=== PATIENT | male | born 1970 | race Caucasian/White ===

== ENCOUNTER 2017-01-12 06:57 | Outpatient (CLI) | payer BC, OTHER ==
[~2017-01-12 06:57] MED LIST: LOSARTIN PO
[2017-01-12 07:43] LABS: BASOPHILS # (AUTO) 0.1 K/uL (0.0-0.2); BASOPHILS % (AUTO) 1.2 % (0.0-2.0); EOSINOPHILS # (AUTO) 0.2 K/uL (0.0-0.7); EOSINOPHILS % (AUTO) 4.9 % (0.0-7.0); HEMATOCRIT 45.5 % (40.0-50.0); HEMOGLOBIN 15.1 g/dL (14.0-18.0); LYMPHOCYTES # (AUTO) 1.3 K/uL (0.8-4.8); LYMPHOCYTES % (AUTO) 27.4 % (20.5-51.5); MEAN CORPUSCULAR HEMOGLOBIN 28.4 uug (27.0-31.0); MEAN CORPUSCULAR HGB CONC 33 g/dL (32.0-37.0); MEAN CORPUSCULAR VOLUME 85.9 fL (82.0-92.0); MONOCYTES # (AUTO) 0.3 K/uL (0.1-1.30); MONOCYTES % (AUTO) 5.5 % (0.0-11.0); NEUTROPHILS # (AUTO) 2.7 K/uL (1.8-8.9); PLATELET COUNT (AUTO) 234 K/uL (150-450); RED CELL DISTRIBUTION WIDTH 12.9 % (11.5-14.5); WHITE BLOOD COUNT (AUTO) 4.6 K/uL (4.0-11.2)
[2017-01-12 08:02] LABS: ALBUMIN 4.2 g/dL (3.4-5.0); BILIRUBIN,TOTAL 0.4 mg/dL (0.2-1.0); CALCIUM 9.1 mg/dL (8.5-10.1); TOTAL PROTEIN, SERUM 7.5 g/dL (6.4-8.2)
[2017-01-12 08:11] LABS: THYROID STIMULATING HORMONE 1.831 mIU/mL (0.358-3.740)
[2017-01-13 13:32] LABS: *MICROALBUMIN, UR <3.0 ug/mL (Not Estab.); CREATININE, URINE 47.9 mg/dL (Not Estab.); MICROALBUMIN/CREAT RATIO, UR <6.3 mg/g creat (0.0-30.0)
== END 2017-01-12 23:59 | disposition home or self-care (01) ==
LOC: LAB 06:57
PROVIDERS: ATTEND Family Medicine
DX: E11.9 Type 2 diabetes mellitus without complications (principal); E55.9 Vitamin D deficiency, unspecified; I10 Essential (primary) hypertension
CPT/HCPCS: 82043; 82306; 82570; 83735; 84443; 84480; 85025

== ENCOUNTER 2017-02-15 11:39 | Day surgery (SDC) | payer BC, OTHER ==
[2017-02-15 12:01] LABS: BASOPHILS # (AUTO) 0.1 K/uL (0.0-8.0); EOSINOPHILS # (AUTO) 0.1 K/uL (0.0-0.7); HEMATOCRIT 46.9 % (40-50); HEMOGLOBIN 15.9 G/DL (14.0-18.0); LYMPHOCYTES # (AUTO) 1.4 K/UL (0.8-4.8); LYMPHOCYTES % (AUTO) 24.9 % (20.5-51.5); MEAN CORPUSCULAR HGB CONC 34 g/dL (32.0-37.0); MEAN CORPUSCULAR VOLUME 85.5 FL (82.0-92.0); MONOCYTES # (AUTO) 0.3 K/UL (0.1-1.30); MONOCYTES % (AUTO) 5.8 % (0.0-11.0); NEUTROPHILS # (AUTO) 3.8 K/UL (1.8-8.9); NEUTROPHILS % (AUTO) 66.3 % (38.5-71.5); PLATELET COUNT (AUTO) 237 K/UL (150-450); RED BLOOD CELL COUNT(AUTO) 5.49 MIL/UL (4.7-6.1); RED CELL DISTRIBUTION WIDTH 12.6 % (11.5-14.5); WHITE BLOOD COUNT (AUTO) 5.7 K/UL (4.0-11.2)
[2017-02-15 12:03] LABS: *BILIRUBIN,URIN NEGATIVE (NEGATIVE); *BLOOD, URINE Trace-lysed (NEGATIVE); *CLARITY,URINE CLEAR (CLEAR); *COLOR,URINE YELLOW (YELLOW); *KETONES,URINE NEGATIVE (NEGATIVE); *PROTEIN,URINE NEGATIVE (NEGATIVE); *UROBILINOGEN,URINE 0.2 E.U./dl (NORMAL); LEUKOCYTE ESTERASE ,URINE NEGATIVE (NEGATIVE); NITRITE, URINE NEGATIVE (NEGATIVE); UGLUCOSE NEGATIVE (NEGATIVE)
[2017-02-15 12:09] LABS: CALCIUM 9.1 mg/dL (8.5-10.1); POTASSIUM 3.6 mmol/L (3.5-5.1)
[2017-02-15 12:14] LABS: ALBUMIN 4.4 g/dL (3.4-5.0); BILIRUBIN,TOTAL 0.6 mg/dL (0.2-1.0); TOTAL PROTEIN, SERUM 7.7 g/dL (6.4-8.2)
[2017-02-15 12:17] LABS: BACTERIA,URINE NONE SEEN /HPF (NONE SEEN); RBC,URINE 0-3 /HPF (0-3); WBC,URINE NONE SEEN /HPF (0-3)
[2017-02-15 12:18] LABS: SQUAMOUS EPITHELIAL CELL,UR FEW /HPF (NONE SEEN)
[2017-02-15] MEDS ORDERED: LIDOCAINE HCL 1% 20 ML VIAL MC ONE (12:47)
[2017-02-15] MEDS ORDERED: PROPOFOL 200 MG/20 ML BOTTLE IV ONE (12:47)
[2017-02-15] MEDS ORDERED: IV LACTATED RINGERS SOLUTION 1,000 ML BAG IV ONE (12:48)
== END 2017-02-15 14:45 | disposition home or self-care (01) ==
LOC: DS 11:39
PROVIDERS: ATTEND Internal Medicine Gastroenterology
DX: D64.9 Anemia, unspecified (principal); K20.9 Esophagitis, unspecified; K64.8 Other hemorrhoids; I10 Essential (primary) hypertension; E11.9 Type 2 diabetes mellitus without complications; E78.00 Pure hypercholesterolemia, unspecified
CPT/HCPCS: 36415; 85025; 85730; A4217; A4663; J3490; J7030; J7120

== ENCOUNTER 2017-04-05 09:24 | Emergency (ER) | payer BC, OTHER ==
[~2017-04-05] VITALS: Ht 172.7 cm; Wt 86.2 kg
[2017-04-05] MEDS ORDERED: METF500T4 PO (09:43)
[2017-04-05] MEDS ORDERED: AMLO5TAB2 PO (09:43)
[2017-04-05] MEDS ORDERED: LOSA1TAB35 PO (09:43)
[2017-04-05] MEDS ORDERED: ATOR10TA PO (09:43)
[2017-04-05] MEDS ORDERED: diphenhydrAMINE 50 MG CAPSULE PO ONE (10:00)
[2017-04-05] MEDS ORDERED: diphenhydrAMINE 50 MG CAPSULE ONE (10:11)
[2017-04-05 10:16] LABS: BASOPHILS % (AUTO) 0.7 % (0.0-2.0); EOSINOPHILS # (AUTO) 0.1 K/uL (0.0-0.7); EOSINOPHILS % (AUTO) 2.6 % (0.0-7.0); HEMOGLOBIN 15.1 G/DL (14.0-18.0); LYMPHOCYTES # (AUTO) 1.5 K/UL (0.8-4.8); LYMPHOCYTES % (AUTO) 30.5 % (20.5-51.5); MEAN CORPUSCULAR HEMOGLOBIN 28.2 UUG (27.0-31.0); MEAN CORPUSCULAR HGB CONC 33 g/dL (32.0-37.0); MEAN CORPUSCULAR VOLUME 85.8 FL (82.0-92.0); MONOCYTES # (AUTO) 0.3 K/UL (0.1-1.30); MONOCYTES % (AUTO) 6.6 % (0.0-11.0); NEUTROPHILS # (AUTO) 3.1 K/UL (1.8-8.9); NEUTROPHILS % (AUTO) 59.6 % (38.5-71.5); PLATELET COUNT (AUTO) 216 K/UL (150-450); RED BLOOD CELL COUNT(AUTO) 5.36 MIL/UL (4.7-6.1)
[2017-04-05 10:22] LABS: CREATININE 0.9 mg/dL (0.6-1.3); POTASSIUM 3.7 mmol/L (3.5-5.1)
[2017-04-05 10:29] LABS: BILIRUBIN,DIRECT 0.1 mg/dL (0.0-0.2); BILIRUBIN,TOTAL 0.5 mg/dL (0.2-1.0); TOTAL PROTEIN, SERUM 7.1 g/dL (6.4-8.2)
[2017-04-05] MEDS ORDERED: GABAPENTIN 100 MG CAPSULE PO ONE (10:45)
--- NOTE | 2017-04-05 10:52 | NUR ---
MSE COMPLETED, MEDS ADMINIOSTERED. PT STATED SYMPTOMS RESOLVING. PT WAS D/C'D HOME WITH ACI/RX X2. PT AMBULATED W/O DIFF/TOOK ALL BELONGINGS.
[2017-04-05 10:54] VITALS: BP 145/89
[2017-04-05] MEDS ORDERED: GABAPENTIN 100 MG CAPSULE ONE (10:56)
== END 2017-04-05 10:54 | disposition home or self-care (01) ==
LOC: ER 09:26
DX: M79.2 Neuralgia and neuritis, unspecified (principal); R21 Rash and other nonspecific skin eruption; I10 Essential (primary) hypertension; E78.00 Pure hypercholesterolemia, unspecified; E11.9 Type 2 diabetes mellitus without complications; K21.9 Gastro-esophageal reflux disease without esophagitis; Z88.6 Allergy status to analgesic agent
CPT/HCPCS: 36415; 70030-TC; 85025; 85730; A4663; Q0163

== ENCOUNTER → 2017-04-21 | Outpatient (CLI) | payer BC, OTHER ==
[~2017-04-21] MED LIST changes: +AMLO5TAB2 PO; +ATOR10TA PO; +LOSA1TAB35 PO; +METF500T4 PO
[2017-04-21 08:44] LABS: BASOPHILS % (AUTO) 0.6 % (0.0-2.0); EOSINOPHILS # (AUTO) 0.1 K/uL (0.0-0.7); EOSINOPHILS % (AUTO) 2.3 % (0.0-7.0); HEMATOCRIT 43.2 % (40-50); HEMOGLOBIN 14.1 G/DL (14.0-18.0); LYMPHOCYTES # (AUTO) 1.3 K/UL (0.8-4.8); LYMPHOCYTES % (AUTO) 28.6 % (20.5-51.5); MEAN CORPUSCULAR HGB CONC 33 g/dL (32.0-37.0); MEAN CORPUSCULAR VOLUME 85.5 FL (82.0-92.0); MONOCYTES # (AUTO) 0.3 K/UL (0.1-1.30); MONOCYTES % (AUTO) 6.1 % (0.0-11.0); NEUTROPHILS # (AUTO) 2.7 K/UL (1.8-8.9); NEUTROPHILS % (AUTO) 62.4 % (38.5-71.5); PLATELET COUNT (AUTO) 171 K/UL (150-450); RED BLOOD CELL COUNT(AUTO) 5.05 MIL/UL (4.7-6.1); WHITE BLOOD COUNT (AUTO) 4.4 K/UL (4.0-11.2)
[2017-04-21 09:02] LABS: BILIRUBIN,TOTAL 0.5 mg/dL (0.2-1.0); POTASSIUM 4.1 mmol/L (3.5-5.1); TOTAL PROTEIN, SERUM 7.2 g/dL (6.4-8.2)
[2017-04-21 09:11] LABS: THYROID STIMULATING HORMONE 1.347 mIU/mL (0.358-3.740)
[2017-04-22 08:08] LABS: *CELIAC IMMUNOGLOBULIN A 192 mg/dL (90-386)
[2017-04-22 12:09] LABS: *MICROALBUMIN, UR <3.0 ug/mL (Not Estab.); CREATININE, URINE 55.9 mg/dL (Not Estab.); IMMUNOGLOBULIN E, TOTAL 195 IU/mL (0-100); MICROALBUMIN/CREAT RATIO, UR <5.4 mg/g creat (0.0-30.0)
[2017-04-24 12:07] LABS: *CELIAC T-TRANSGLUTAMINASE IGA <2 U/mL (0-3); *CELIAC T-TRANSGLUTAMINASE IGG <2 U/mL (0-5)
[2017-04-25 11:07] LABS: *CELIAC DEAMIDATED GLIADIN IGA 5 units (0-19); *CELIAC DEAMIDATED GLIADIN IGG 2 units (0-19)
== END | disposition home or self-care (01) ==
LOC: LAB 07:11
PROVIDERS: ATTEND Family Medicine
DX: E11.9 Type 2 diabetes mellitus without complications (principal); L28.2 Other prurigo
CPT/HCPCS: 36415; 82043; 82570; 82785; 84443; 84480; 85025

== ENCOUNTER → 2017-08-22 | Outpatient (CLI) | payer BC, OTHER ==
[2017-08-22 07:46] LABS: *BILIRUBIN,URIN NEGATIVE (NEGATIVE); *BLOOD, URINE NEGATIVE (NEGATIVE); *CLARITY,URINE CLEAR (CLEAR); *COLOR,URINE YELLOW (YELLOW); *KETONES,URINE NEGATIVE (NEGATIVE); *PROTEIN,URINE NEGATIVE (NEGATIVE); *UROBILINOGEN,URINE 0.2 E.U./dl (NORMAL); LEUKOCYTE ESTERASE ,URINE NEGATIVE (NEGATIVE); NITRITE, URINE NEGATIVE (NEGATIVE); PH,URINE 7.5 (5.0-8.0); UGLUCOSE NEGATIVE (NEGATIVE)
[2017-08-22 07:58] LABS: BASOPHILS % (AUTO) 0.7 % (0.0-2.0); EOSINOPHILS # (AUTO) 0.1 K/uL (0.0-0.7); EOSINOPHILS % (AUTO) 2.2 % (0.0-7.0); HEMATOCRIT 45.3 % (40-50); LYMPHOCYTES # (AUTO) 1.2 K/UL (0.8-4.8); MEAN CORPUSCULAR HGB CONC 33 g/dL (32.0-37.0); MEAN CORPUSCULAR VOLUME 84.7 FL (82.0-92.0); MONOCYTES # (AUTO) 0.3 K/UL (0.1-1.30); MONOCYTES % (AUTO) 6.6 % (0.0-11.0); NEUTROPHILS % (AUTO) 63.5 % (38.5-71.5); PLATELET COUNT (AUTO) 230 K/UL (150-450); RED BLOOD CELL COUNT(AUTO) 5.35 MIL/UL (4.7-6.1); WHITE BLOOD COUNT (AUTO) 4.6 K/UL (4.0-11.2)
[2017-08-22 08:06] LABS: BACTERIA,URINE NONE SEEN /HPF (NONE SEEN); RBC,URINE 0-3 /HPF (0-3); WBC,URINE 0-3 /HPF (0-3)
[2017-08-22 08:07] LABS: SQUAMOUS EPITHELIAL CELL,UR NONE SEEN /HPF (NONE SEEN)
[2017-08-22 08:38] LABS: BILIRUBIN,TOTAL 0.6 mg/dL (0.2-1.0); CREATININE 0.8 mg/dL (0.6-1.3); POTASSIUM 3.7 mmol/L (3.5-5.1); TOTAL PROTEIN, SERUM 7.5 g/dL (6.4-8.2)
[2017-08-22 09:31] LABS: THYROID STIMULATING HORMONE 2.708 mIU/mL (0.358-3.740)
[2017-08-23 10:08] LABS: HEPATITIS A AB, TOTAL Negative (Negative); HEPATITIS B SURFACE AB Reactive (.)
== END | disposition home or self-care (01) ==
LOC: LAB 06:56
PROVIDERS: ATTEND Family Medicine
DX: Z11.59 Encounter for screening for other viral diseases (principal); E11.9 Type 2 diabetes mellitus without complications
CPT/HCPCS: 82043; 82570; 84443; 85025; 86706; 86708

== ENCOUNTER 2017-10-05 09:36 | Outpatient (CLI) | payer BC, OTHER ==
[~2017-10-05 09:36] MED LIST changes: -LOSA1TAB35 PO; +LOSA1TAB42 PO
== END 2017-10-05 23:59 | disposition home or self-care (01) ==
LOC: LAB 09:36
PROVIDERS: ATTEND Family Medicine
DX: Z11.59 Encounter for screening for other viral diseases (principal)
CPT/HCPCS: 36415; 86708

== ENCOUNTER 2018-01-27 09:03 | Outpatient (CLI) | payer BC, OTHER ==
[~2018-01-27 09:03] MED LIST changes: -METF500T4 PO; +METF500T6 PO
== END 2018-01-27 23:59 | disposition home or self-care (01) ==
LOC: LAB 09:03
PROVIDERS: ATTEND Family Medicine
DX: E55.9 Vitamin D deficiency, unspecified (principal)
CPT/HCPCS: 36415; 82306

== ENCOUNTER 2020-10-07 16:39 | Outpatient (CLI) | payer BC, OTHER ==
[~2020-10-07 16:39] MED LIST changes: +AMLO-212 PO; -AMLO5TAB2 PO; +METF-440 PO; -METF500T6 PO
[2020-10-07 17:26] LABS: BASOPHILS # (AUTO) 0.1 K/uL (0.0-8.0); BASOPHILS % (AUTO) 2.2 % (0.0-2.0); EOSINOPHILS # (AUTO) 0.2 K/uL (0.0-0.7); EOSINOPHILS % (AUTO) 3.7 % (0.0-7.0); HEMATOCRIT 43.9 % (36.7-47.1); HEMOGLOBIN 14.5 g/dL (12.5-16.3); LYMPHOCYTES # (AUTO) 1.7 K/uL (20.0-40.0); LYMPHOCYTES % (AUTO) 26.2 % (20.5-51.5); MEAN CORPUSCULAR HEMOGLOBIN 28.9 uug (23.8-33.4); MEAN CORPUSCULAR HGB CONC 33 g/dL (32.5-36.3); MEAN CORPUSCULAR VOLUME 87.6 fL (73.0-96.2); MONOCYTES # (AUTO) 0.5 K/uL (2.0-10.0); MONOCYTES % (AUTO) 7.4 % (0.0-11.0); NEUTROPHILS # (AUTO) 3.8 K/uL (1.8-8.9); NEUTROPHILS % (AUTO) 60.5 % (38.5-71.5); PLATELET COUNT (AUTO) 234 K/uL (152-348); RED BLOOD CELL COUNT(AUTO) 5.02 MIL/uL (4.06-5.63); WHITE BLOOD COUNT (AUTO) 6.3 K/uL (3.6-10.2)
== END 2020-10-07 23:59 | disposition home or self-care (01) ==
LOC: LAB 16:39
PROVIDERS: ATTEND Family Medicine
DX: M79.605 Pain in left leg (principal)
CPT/HCPCS: 36415; 85025

== ENCOUNTER → 2020-10-24 | Outpatient (CLI) | payer BC, OTHER ==
[2020-10-24 10:09] LABS: *BILIRUBIN,URIN NEGATIVE (NEGATIVE); *BLOOD, URINE NEGATIVE (NEGATIVE); *COLOR,URINE YELLOW (YELLOW); *KETONES,URINE NEGATIVE (NEGATIVE); *UROBILINOGEN,URINE 0.2 E.U./dl (NORMAL); LEUKOCYTE ESTERASE ,URINE NEGATIVE (NEGATIVE); NITRITE, URINE NEGATIVE (NEGATIVE); PH,URINE 7.5 (5.0-8.0); UGLUCOSE NEGATIVE (NEGATIVE)
[2020-10-24 10:13] LABS: *CLARITY,URINE CLEAR (CLEAR)
[2020-10-24 10:31] LABS: THYROID STIMULATING HORMONE 1.179 mIU/mL (0.358-3.740)
[2020-10-24 10:57] LABS: BILIRUBIN,TOTAL 0.7 mg/dL (0.2-1.0); CREATININE 0.8 mg/dL (0.6-1.3); TOTAL PROTEIN, SERUM 7.4 g/dL (6.4-8.2)
== END | disposition home or self-care (01) ==
LOC: LAB 09:34
PROVIDERS: ATTEND Family Medicine
DX: I10 Essential (primary) hypertension (principal); E55.9 Vitamin D deficiency, unspecified; M79.605 Pain in left leg; Z79.899 Other long term (current) drug therapy
CPT/HCPCS: 36415; 82306; 82746; 84443; 84550

== ENCOUNTER → 2021-04-03 | Outpatient (CLI) | payer BC, OTHER ==
[2021-04-03 09:11] LABS: *BILIRUBIN,URIN NEGATIVE (NEGATIVE); *CLARITY,URINE CLEAR (CLEAR); *COLOR,URINE YELLOW (YELLOW); *KETONES,URINE NEGATIVE (NEGATIVE); *UROBILINOGEN,URINE 0.2 E.U./dl (NORMAL); LEUKOCYTE ESTERASE ,URINE NEGATIVE (NEGATIVE); NITRITE, URINE NEGATIVE (NEGATIVE); PH,URINE 7.5 (5.0-8.0); UGLUCOSE NEGATIVE (NEGATIVE)
[2021-04-03 09:39] LABS: *BLOOD, URINE TRACE (NEGATIVE)
[2021-04-03 09:42] LABS: HEMATOCRIT 43.4 % (36.7-47.1); PLATELET COUNT (AUTO) 219 K/uL (152-348)
[2021-04-03 09:52] LABS: BILIRUBIN,TOTAL 0.6 mg/dL (0.2-1.0); CREATININE 0.8 mg/dL (0.6-1.3); POTASSIUM 3.7 mmol/L (3.5-5.1); TOTAL PROTEIN, SERUM 7.1 g/dL (6.4-8.2)
[2021-04-03 10:02] LABS: THYROID STIMULATING HORMONE 2.322 mIU/mL (0.358-3.740)
[2021-04-03 17:32] LABS: RBC,URINE 0-3 /HPF (0-3); SQUAMOUS EPITHELIAL CELL,UR FEW /HPF (NONE SEEN); WBC,URINE NONE SEEN /HPF (0-3)
[2021-04-04 15:37] LABS: *MICROALBUMIN, UR 4.7; CREATININE, URINE 34.5
== END | disposition home or self-care (01) ==
LOC: LAB 08:47
PROVIDERS: ATTEND Family Medicine
DX: I10 Essential (primary) hypertension (principal); E11.9 Type 2 diabetes mellitus without complications; E55.9 Vitamin D deficiency, unspecified; K21.00 Gastro-esophageal reflux disease with esophagitis, without bleeding
CPT/HCPCS: 36415; 82043; 82306; 82570; 84443; 85025

== ENCOUNTER 2021-12-24 10:47 | Outpatient (CLI) | payer BC, OTHER | END 2021-12-24 23:59 | disposition home or self-care (01) | LOC: CT 10:47 | PROVIDERS: ATTEND Family Medicine | DX: R91.1 Solitary pulmonary nodule (principal); E27.8 Other specified disorders of adrenal gland; M47.814 Spondylosis without myelopathy or radiculopathy, thoracic region; M19.011 Primary osteoarthritis, right shoulder; M19.012 Primary osteoarthritis, left shoulder; Z87.891 Personal history of nicotine dependence | CPT/HCPCS: 71250 ==

== ENCOUNTER 2022-07-02 08:08 | Outpatient (CLI) | payer BC, OTHER | END 2022-07-02 10:53 | disposition home or self-care (01) | LOC: LAB 08:08 | PROVIDERS: ATTEND Internal Medicine Gastroenterology | DX: Z01.812 Encounter for preprocedural laboratory examination (principal); Z20.822 Contact with and (suspected) exposure to COVID-19 ==

== ENCOUNTER 2022-07-02 08:34 | Outpatient (CLI) | payer BC, OTHER ==
[2022-07-02 09:01] LABS: HEMATOCRIT 43.8 % (36.7-47.1); MEAN CORPUSCULAR HEMOGLOBIN 29.1 uug (23.8-33.4); MEAN CORPUSCULAR VOLUME 86.5 fL (73.0-96.2); PLATELET COUNT (AUTO) 262 K/uL (152-348)
[2022-07-02 09:08] LABS: BILIRUBIN,TOTAL 0.6 mg/dL (0.2-1.0); CREATININE 0.9 mg/dL (0.6-1.3); POTASSIUM 3.8 mmol/L (3.5-5.1); TOTAL PROTEIN, SERUM 7.6 g/dL (6.4-8.2)
[2022-07-02 09:08] LABS: *BILIRUBIN,URIN NEGATIVE (NEGATIVE); *BLOOD, URINE TRACE (NEGATIVE); *CLARITY,URINE CLEAR (CLEAR); *COLOR,URINE YELLOW (YELLOW); *KETONES,URINE NEGATIVE (NEGATIVE); *UROBILINOGEN,URINE 0.2 E.U./dl (NORMAL); LEUKOCYTE ESTERASE ,URINE NEGATIVE (NEGATIVE); NITRITE, URINE NEGATIVE (NEGATIVE); UGLUCOSE NEGATIVE (NEGATIVE)
[2022-07-02 09:32] LABS: BACTERIA,URINE NONE SEEN /HPF (NONE SEEN); RBC,URINE 0-3 /HPF (0-3); SQUAMOUS EPITHELIAL CELL,UR NONE SEEN /HPF (NONE SEEN); WBC,URINE NONE SEEN /HPF (0-3)
== END 2022-07-02 23:59 | disposition home or self-care (01) ==
LOC: LAB 08:34
PROVIDERS: ATTEND Internal Medicine Gastroenterology
DX: Z01.812 Encounter for preprocedural laboratory examination (principal)
CPT/HCPCS: 36415; 85025; 85610; 85730

== ENCOUNTER → 2022-07-05 | Day surgery (SDC) | payer BC, OTHER ==
[~2022-07-05] MED LIST changes: +LIDOCAINE-MPF 2% 5 ML VIAL IJ ONE; +PROPOFOL 200 MG/20 ML BOTTLE IV ONE
== END | disposition home or self-care (01) ==
LOC: DS 05:34
PROVIDERS: ATTEND Internal Medicine Gastroenterology
DX: Z12.11 Encounter for screening for malignant neoplasm of colon (principal); R10.13 Epigastric pain; K64.8 Other hemorrhoids; K63.89 Other specified diseases of intestine; K31.89 Other diseases of stomach and duodenum; K21.00 Gastro-esophageal reflux disease with esophagitis, without bleeding; K29.50 Unspecified chronic gastritis without bleeding; I10 Essential (primary) hypertension; E11.9 Type 2 diabetes mellitus without complications; Z79.82 Long term (current) use of aspirin; Z79.84 Long term (current) use of oral hypoglycemic drugs; Z98.890 Other specified postprocedural states
CPT/HCPCS: A4663; J3490; J7040

== ENCOUNTER 2022-12-16 11:49 | Outpatient (CLI) | payer BC, OTHER ==
[~2022-12-16 11:49] MED LIST changes: -LIDOCAINE-MPF 2% 5 ML VIAL IJ ONE; -PROPOFOL 200 MG/20 ML BOTTLE IV ONE
== END 2022-12-16 23:59 | disposition home or self-care (01) ==
LOC: RAD 11:49
PROVIDERS: ATTEND Family Medicine
DX: R91.1 Solitary pulmonary nodule (principal); M25.521 Pain in right elbow
CPT/HCPCS: 71250; 73080

== ENCOUNTER 2023-01-19 11:50 | Inpatient (IN) | payer BC, OTHER ==
[~2023-01-19] VITALS: Ht 172.7 cm; Wt 90.7 kg
[2023-01-19] MEDS ORDERED: IV NORMAL SALINE 1000 ML BAG IV ONE (12:15)
[2023-01-19 12:17] LABS: HEMATOCRIT 41.5 % (36.7-47.1); MEAN CORPUSCULAR HEMOGLOBIN 28.7 uug (23.8-33.4); MEAN CORPUSCULAR VOLUME 86.1 fL (73.0-96.2); PLATELET COUNT (AUTO) 200 K/uL (152-348)
[2023-01-19 12:27] LABS: CARBON DIOXIDE 25 mmol/L (21-32); CHLORIDE 100 mmol/L (98-107); CREATININE 0.9 mg/dL (0.6-1.3); GLUCOSE 211 mg/dL (74-106); POTASSIUM 3.2 mmol/L (3.5-5.1); UREA NITROGEN, BLOOD 15 mg/dL (7-18)
--- NOTE | 2023-01-19 12:32 | NUR ---
PT IS IN ROOM #1B. DR SCHAFER EVALUATED THE PT.
[2023-01-19] MEDS ORDERED: POTASSIUM CHLORIDE 20 MEQ TAB.PRT.SR ONE (14:29)
[2023-01-19] MEDS ORDERED: POTASSIUM CHLORIDE 20 MEQ TAB.PRT.SR PO ONE (14:30)
[2023-01-19 14:55] LABS: BILIRUBIN,DIRECT 0.1 mg/dL (0.0-0.2); BILIRUBIN,TOTAL 0.2 mg/dL (0.2-1.0)
--- NOTE | 2023-01-19 18:00 | NUR ---
Received admission from ER via wheel chair, with chief complain of dizziness, chest pain. Dx. of near syncope. Vital signs taken and recorded, no complain. On room air saturating at 97%. SR on tele monitor. Needs attended
--- NOTE | 2023-01-19 18:00 | NUR ---
PT WAS TRANSFERED TO ROOM #325. REPORT WAS GIVEN TO CLINICAL DIETETIC TECHNICIAN.
[2023-01-19] MEDS ORDERED: MAGNESIUM HYDROXIDE 30 ML LIQUID UDC PO PRN (18:30)
[2023-01-19] MEDS ORDERED: REMEDY ESSENTIAL ZINC PASTE 113 GM TP PRN (18:30)
[2023-01-19] MEDS ORDERED: ONDANSETRON 4 MG/2 ML VIAL IV PRN (18:30)
[2023-01-19] MEDS ORDERED: IV NS 1000 ML 1,000 ML IV PRN (18:30)
[2023-01-19 18:33] VITALS: BP 131/80
[2023-01-19] MEDS ORDERED: DEXTROSE 50% 50 ML DISP.SYRIN IV PRN (18:45)
[2023-01-19 20:00] VITALS: BP 128/75
--- NOTE | 2023-01-19 20:00 | NUR ---
rounds made patient in bed asleep but easily arousable denies chest when asked no respiratory distress noted breathing even and unlabored on room air . urinal provided and advised patient to call for assistance call light placed with in reach .
--- NOTE | 2023-01-19 20:05 | NUR ---
started ivf normal saline at 75 ml/hr via the right ac no.18 H/L flushed ivf site patent . patient with family members at [facility] who came to visit him .
[2023-01-19] MEDS: BLOOD SUGAR DIAGNOSTIC 1 EACH STRIP VI SCH (21:00)
--- NOTE | 2023-01-19 21:00 | NUR ---
fingerstick done blood sugar 127 asked patient if he had dinner since his a new admission he said no provided tuna and turkey sandwich at [facility] and ice water .
--- NOTE | 2023-01-19 23:00 | NUR ---
patient in bed sleeping . no s/s/ of pain . breathing even and unlabored .
[2023-01-20] VITALS (7 sets, daily range): BP systolic 115–147; BP diastolic 70–95
--- NOTE | 2023-01-20 02:07 | NUR ---
rounds made patient in bed wake watching tv asked patient if his in pain he said no advised to call for assistance.
--- NOTE | 2023-01-20 06:26 | NUR ---
called lab c/o covid swab specimen in the lab they will run the test .
--- NOTE | 2023-01-20 06:28 | NUR ---
fingerstick done blood sugar 158 .
[2023-01-20] MEDS: BLOOD SUGAR DIAGNOSTIC 1 EACH STRIP VI SCH ×3 (06:31→16:16)
[2023-01-20 06:45] LABS: HEMATOCRIT 41.2 % (36.7-47.1); MEAN CORPUSCULAR HEMOGLOBIN 28.8 uug (23.8-33.4); MEAN CORPUSCULAR VOLUME 86.1 fL (73.0-96.2); PLATELET COUNT (AUTO) 217 K/uL (152-348)
[2023-01-20 07:25] LABS: CREATININE 0.8 mg/dL (0.6-1.3); MAGNESIUM 1.9 mg/dL (1.8-2.4); PHOSPHOROUS 2.7 mg/dL (2.5-4.9); POTASSIUM 4.1 mmol/L (3.5-5.1)
[2023-01-20 07:33] LABS: THYROID STIMULATING HORMONE 1.198 mIU/mL (0.358-3.740)
--- NOTE | 2023-01-20 08:00 | NUR ---
SEEN AND EXAMINED BY DR DE LA CRUZ FOR CARDIAC CONSULT WITH ORDERS. ORTHOSTATIC BP DONE AND RECORDED. PATIENT REMAINS ON SR NO SS OF CHEST PAIN OR C/O OF DIZZINESS. CLOSELY MONITORED AND CONTINUE WITH IVF ORDERED
[2023-01-20] MEDS: INSULIN REGULAR, HUMAN 300 UNIT/3 ML VIAL SQ PRN ×2 (08:07→11:44)
[2023-01-20] MEDS: METFORMIN HCL 500 MG TABLET PO SCH ×2 (08:24→17:10)
[2023-01-20] MEDS ORDERED: PANTOPRAZOLE SODIUM 40 MG VIAL IV SCH (09:00)
[2023-01-20] MEDS ORDERED: LOSA100T31 PO (09:07)
[2023-01-20 11:29] LABS: *BILIRUBIN,URIN NEGATIVE (NEGATIVE); *CLARITY,URINE CLEAR (CLEAR); *COLOR,URINE YELLOW (YELLOW); *KETONES,URINE NEGATIVE (NEGATIVE); *UROBILINOGEN,URINE 0.2 E.U./dl (NORMAL); LEUKOCYTE ESTERASE ,URINE NEGATIVE (NEGATIVE); NITRITE, URINE NEGATIVE (NEGATIVE); UGLUCOSE NEGATIVE (NEGATIVE)
--- NOTE | 2023-01-20 12:00 | NUR ---
SEEN BY PHYSICAL THERAPIST SEE NOTES
[2023-01-20 14:13] LABS: *BLOOD, URINE TRACE (NEGATIVE)
[2023-01-20 15:43] LABS: BACTERIA,URINE NONE SEEN /HPF (NONE SEEN); RBC,URINE 0-3 /HPF (0-3); SQUAMOUS EPITHELIAL CELL,UR FEW /HPF (NONE SEEN); WBC,URINE NONE SEEN /HPF (0-3)
--- NOTE | 2023-01-20 17:52 | NUR ---
PER HOSPITALIST PATIENT OKAY TO GO HOME. PATIENT MADE AWARE AND WILL FOLLOW-UP WITH PCP
[2023-01-20] MEDS ORDERED: ATORVASTATIN 10 MG TABLET PO SCH (18:00)
--- NOTE | 2023-01-20 18:20 | NUR ---
NO SS OF DIZZINESS OR CHEST PAIN, PATIENT DISCHARGED HOME STABLE WITH DISCHARGE MEDICATION AND FOLLOW-UP INSTRUCTION GIVEN.
[2023-01-21 14:06] LABS: CORTISOL AM 14.3 ug/dL (6.2-19.4)
== END 2023-01-20 18:20 | disposition home or self-care (01) | DRG 641 ==
LOC: ER 11:50 → TELE3 17:38
PROVIDERS: ADMIT Registered Nurse; ATTEND Registered Nurse
DX: E86.0 Dehydration (principal); E87.20 Acidosis, unspecified; T50.2X5A Adverse effect of carbonic-anhydrase inhibitors, benzothiadiazides and other diuretics, initial encounter; R55 Syncope and collapse; Y92.89 Other specified places as the place of occurrence of the external cause; D35.02 Benign neoplasm of left adrenal gland; K21.9 Gastro-esophageal reflux disease without esophagitis; E78.5 Hyperlipidemia, unspecified; R00.0 Tachycardia, unspecified; E87.6 Hypokalemia; I10 Essential (primary) hypertension; Z88.6 Allergy status to analgesic agent; E11.9 Type 2 diabetes mellitus without complications; Z79.84 Long term (current) use of oral hypoglycemic drugs; Z79.899 Other long term (current) drug therapy
CPT/HCPCS: 36415; 70450; 71045; 82088; 82533; 83605; 83735; 84100; 84244; 84443; 84484; 85025; 85730; 93005; A4663; C9113; G0378; J1815; J7040